=== PATIENT | male | born 1950 | race Caucasian/White ===

== ENCOUNTER 2016-09-27 17:19 | Emergency (ER) | payer OTHER, MEDICARE ==
[2016-09-27] MEDS ORDERED: TERAZOSIN HCL10 M1 PO (17:48)
[2016-09-27] MEDS ORDERED: VERAPAMIL ER240 M1 PO (17:48)
[2016-09-27] MEDS ORDERED: GLUCOVANCE 2.51 EACH PO ×2 (17:49)
[2016-09-27] MEDS ORDERED: ASPIRIN EC81 M1 PO (17:49)
[2016-09-27] MEDS ORDERED: DAILY MULTIPLE1 EACH PO (17:50)
[2016-09-27] MEDS ORDERED: VITAMIN D2000 UNIT PO (17:50)
[2016-09-27] MEDS ORDERED: ALLEGRA ALLERG180 M1 PO (17:50)
[2016-09-27] MEDS ORDERED: EPINEPHRIN0.3 MG/0.1 IM (17:51)
--- NOTE | 2016-09-27 18:10 | ED SKIN/ALLERGY COMPLAINT ---
See Addendum History of Present Illness General Chief Complaint: Allergy Symptoms Stated Complaint: TOUNGE SWOLLEN, NO RESP DISTRESS NOTED Source: patient Exam Limitations: no limitations Vital Signs & Intake/Output Vital Signs & Intake/Output Vital Signs Date Time Temp Pulse Resp B/P Pulse O2 O2 Flow FiO2 Ox Delivery Rate 09/27 2206 70 18 155/84 96 09/27 1928 98.2 86 20 169/85 96 09/27 1816 97.0 84 18 172/90 97 Room Air 09/27 1810 97 09/27 1733 97.3 87 16 180/90 98 Room Air Allergies Coded Allergies: mold (09/27/16) pollen extracts (09/27/16) Uncoded Allergies: CATS (09/27/16) Triage Note: TRIAGE; PT TO ED WITH TONGUE SWELLING X1.5 HOURS AND TOOK AN LEONID. STATES HAS HAD EPISODES OF SWELLING TO OTHER PARTS OF HIS BODY IN THE PAST. HAS EPI PEN BUT DID NOT USE IT. DENIES ANY DIFF BREATHING. TA SAT 98%. Triage Nurses Notes Reviewed? yes Onset: Gradual Duration: getting worse Timing: single episode today Severity: moderate Severity Numbers: 5 Location: face Possible Factors: foods HPI: Patient is a 66-year-old male with a past medical history of hypertension and diabetes, prostate cancer WITH prostatectomy who presented to emergency room stating that 2 hours prior to arrival patient was in his normal state of health who states that he was eating sweet potato chips and drinking a vodka with Delta where half an hour later he started developing gradually worsening tongue swelling. Patient took an Leonid prior to arrival with no relief of symptoms. Patient denies any fever chills difficulty swallowing difficulty breathing rash. Patient does state that he has difficulty talking patient is able tolerate his own secretions Patient does admit to having multiple allergies in which he has been evaluated by an lang interpreter and was given epinephrine pen if needed however he did not take this prior to arrival. Patient describes no new medications prior to symptoms onset Is not on an RUCHI inhibitor (SANGITA SHULTZ) Reconcile Medications Aspirin (Ecotrin*) 81 MG TABLET. 1 TAB PO EOD HEART/BLOOD (Reported) Cholecalciferol (Vitamin D3) (Vitamin D) (Unknown Strength) CAPSULE (Unknown Dose) PO DAILY SUPPLEMENT (Reported) Diphenhydramine HCl (Benadryl) 25 MG CAPSULE 1 CAP PO TID ALLERGIC REACTION Epinephrine 0.3 MG/0.3 ML AUTO.INJCT 0.3 MG IM AD PRN ALLERGIC REACTION ( Reported) Famotidine (Pepcid) 20 MG TABLET 1 TAB PO BID ALLERGIC REACTION Fexofenadine HCl (Leonid Allergy) 180 MG TABLET 1 TAB PO DAILY ALLERGIES ( Reported) Glyburide/Metformin HCl (Glucovance 2.5-500 MG Tablet) 2.5 MG-500 MG TABLET 1 TAB PO QAM DM (Reported) Glyburide/Metformin HCl (Glucovance 2.5-500 MG Tablet) 2.5 MG-500 MG TABLET 2 TAB PO QPM DM (Reported) Multivitamin (Daily Multiple Vitamin) 1 EACH TABLET 1 TAB PO DAILY SUPPLEMENT (Reported) Prednisone 10 MG TABLET 1 TAB PO AD ANGIOEDEMA DAY1/DAY2 FOUR TABS DAY3/DAY4 THREE TABS DAY 5 TWO TABS Terazosin HCl 10 MG CAPSULE 1 CAP PO DAILY BP (Reported) Verapamil HCl (Verapamil ER) 240 MG TABLET.ER 1 TAB PO BID BP (Reported) (CALIN HUANG) Past History Travel History Traveled to [place] past 21 day No Medical History Any Pertinent Medical History? see below for history Cardiovascular: hypertension Endocrine: diabetes Cancer(s): prostate cancer Surgical History Surgical History: non-contributory Family History Hx Contributory? No (SANGITA SHULTZ) Review of Systems Review of Systems Constitutional: Reports: no symptoms. EENTM: Denies: throat pain, throat swelling. Respiratory: Reports: no symptoms. Cardiovascular: Reports: no symptoms. GI: Reports: no symptoms. Genitourinary: Reports: no symptoms. Musculoskeletal: Reports: no symptoms. Skin: Reports: no symptoms. Neurological/Psychological: Reports: no symptoms. Hematologic/Endocrine: Reports: no symptoms. Immunologic/Allergic: Reports: no symptoms. All Other Systems: Reviewed and Negative (SANGITA SHULTZ) Physical Exam Physical Exam General Appearance: no apparent distress, alert Comments: Well-developed well-nourished person in no acute distress HEENT: Normal EENT exam, extraocular motion intact, no nystagmus. Pupils equally round and reactive to light and accommodation. Nose is atraumatic. External auditory canal and Tympanic membranes clear. Pharynx normal. No swelling or edema. No lip swelling, Moderate tongue swelling noted Neck: Supple, no lymphadenopathy, normal range of motion without pain or tenderness No stridor Cardiovascular: Regular rate and rhythms no murmurs rubs or gallops, normal JVP Respiratory: Chest nontender. No respiratory distress.breath sounds clear to auscultation bilaterally Abdomen: Soft, nontender nondistended, no appreciable organomegaly. Normal bowel sounds. No ascites Extremity: No edema, no calf tenderness to palpation, normal and equal pulses. Neuro: Alert oriented x3, motor sensory normal, Skin: No appreciable rash on exposed skin, skin is warm and dry. Psych: Mood and affect is normal, memory and judgment is normal. (SANGITA SHULTZ) Progress Differential Diagnosis: abscess/cellulitis, allergic reaction, anaphylaxis, angioedema, asthma, contact dermatitis, drug reaction Plan of Care: Current Medications Sig/Carmen Start time Last Medication Dose Stop Time Status Admin Diphenhydramine HCl 50 MG ONCE ONE 09/27 1814 UNVr (Benadryl) 09/28 1815 Famotidine 20 MG ONCE ONE 09/27 1814 UNVr (Pepcid) 09/28 1815 Methylprednisolone 125 MG ONCE ONE 09/27 1814 UNVr (Solu Medrol) 09/28 181509/27/2016 6:52:03 PM reevaluation the patient patient had no change in symptoms however he still has no stridor no pharyngeal swelling no tongue swelling and no respiratory distress oxygen saturation 98% room air 09/27/2016 8:36:28 PM patient was reevaluated on multiple occasions and noted improvement of symptoms HOWEVER there is still mild swelling noted. Patient will be continued to be monitored and evaluated by hand off provider. The posterior pharynx on examination was unremarkable. Patient still had no stridor. Patient resting comfortably. Oxygen saturation 98%. Discussed hand off with Calin Head PA-C who is aware of disposition and plan (SANGITA SHULTZ) Hand-Off Endorsed To: CALIN HUANG Endorsed Time: 2041 Pending: other (SANGITA SHULTZ) Comments: 09/27/2016 8:34:00 PM patient signed out to me at change of shift. Patient was medicated for likely allergic reaction and swelling of the tongue. We will continue to monitor this patient to make sure there is no delayed reaction or worsening of symptoms. Vitals will be monitored closely. 09/27/2016 10:34:37 PM patient was reevaluated. Claims secretions without difficulty. Tongue swelling seems to be improving. Patient reports that his tongue feels much improved after medications. Patient will be discharged home and will start medications ever given to him tomorrow. He will return for any worsening symptoms or concerns. Discussed with Dr. moore and he agrees with plan. (CALIN HUANG) Departure Departure Disposition: HOME OR SELF CARE Condition: Stable Clinical Impression Primary Impression: Angioedema Referrals: CHRISTINA CABAN,LINNEA Dobbins (PCP/Family) Additional Instructions: As discussed first thing tomorrow follow-up with YOUR lang interpreter as directed for further evaluation treatment. Please avoid the ingestion of food prior to onset of your symptoms as this may worsen your symptoms. Begin the prescription of prednisone, AND BENADRYL, and Pepcid as directed tomorrow as you receive this medication emergency room today. If symptoms worsen return to the emergency room. Per sepsis awaiting your pharmacy. Departure Forms: Customer Survey General Discharge Information Prescriptions: Current Visit Scripts Prednisone 1 TAB PO AD #16 TAB DAY1/DAY2 FOUR TABS DAY3/DAY4 THREE TABS DAY 5 TWO TABS Diphenhydramine HCl (Benadryl) 1 CAP PO TID #12 CAP Famotidine (Pepcid) 1 TAB PO BID #8 TAB (SANGITA SHULTZ) PA/MILL PLATFORM SUPERVISOR Co-Sign Statement Statement: ED Attending supervision documentation- x I saw and evaluated the patient. I have also reviewed all the pertinent lab results and diagnostic results. I agree with the findings and the plan of care as documented in the PA's/MILL PLATFORM SUPERVISOR's documentation. [] I have reviewed the ED Record and agree with the PA's/MILL PLATFORM SUPERVISOR's documentation. [] Additions or exceptions (if any) to the PAs/MILL PLATFORM SUPERVISOR's note and plan are summarized below: [] (MINA CABAN,SALMA)
[2016-09-27] MEDS ORDERED: PREDNISONE10 M2 PO (20:43)
[2016-09-27] MEDS ORDERED: BENADRYL25 MG PO (20:43)
[2016-09-27] MEDS ORDERED: PEPCID20 M1 PO (20:43)
[2016-09-27 22:06] VITALS: BP 155/84
== END 2016-09-27 22:37 ==
LOC: ERH 17:19
DX: T78.3XXA Angioneurotic edema, initial encounter (principal)
CPT/HCPCS: 96374; 96375; J1200; J2930

== ENCOUNTER 2016-10-05 17:09 | Emergency (ER) | payer OTHER, MEDICARE ==
[~2016-10-05 17:09] MED LIST: ALLEGRA ALLERG180 M1 PO; ASPIRIN EC81 M1 PO; BENADRYL25 MG PO; DAILY MULTIPLE1 EACH PO; EPINEPHRIN0.3 MG/0.1 IM; GLUCOVANCE 2.51 EACH PO; PEPCID20 M1 PO; PREDNISONE10 M2 PO; TERAZOSIN HCL10 M1 PO; VERAPAMIL ER240 M1 PO; VITAMIN D2000 UNIT PO
--- NOTE | 2016-10-05 17:38 | ED SKIN/ALLERGY COMPLAINT ---
See Addendum History of Present Illness General Chief Complaint: General Adult Stated Complaint: THROAT SWELLING Source: patient, old records Exam Limitations: no limitations Vital Signs & Intake/Output Vital Signs & Intake/Output Vital Signs Date Time Temp Pulse Resp B/P Pulse O2 O2 Flow FiO2 Ox Delivery Rate 10/06 2151 97.5 75 18 156/84 94 Room Air 10/05 1942 98.7 65 18 148/80 98 Room Air 10/05 1853 97.6 63 18 152/80 97 Room Air 10/05 1738 98 10/05 1719 98.6 74 16 174/100 99 Room Air Allergies Coded Allergies: atorvastatin (From LIPITOR) (Intermediate, JOINT SWELLING, UNABLE TO WALK ) quinapril (From ACCUPRIL) (Intermediate, SWELLING, ANGIOEDEMA 10/05/16) cat dander (THROAT SWELLING 10/05/16) mold (POSITIVE ALLERGY TEST 10/05/16) pollen extracts (POSITIVE ALLERGY TEST 10/05/16) Reconcile Medications Aspirin (Ecotrin*) 81 MG TABLET.DR 1 TAB PO EOD HEART/BLOOD (Reported) Cetirizine HCl (Zyrtec) 10 MG TABLET 1 TAB PO PRN ALLERGIES (Reported) Cholecalciferol (Vitamin D3) (Vitamin D) (Unknown Strength) CAPSULE (Unknown Dose) PO DAILY SUPPLEMENT (Reported) Epinephrine 0.3 MG/0.3 ML AUTO.INJCT 0.3 MG IM AD PRN ALLERGIC REACTION ( Reported) Glyburide/Metformin HCl (Glucovance 2.5-500 MG Tablet) 2.5 MG-500 MG TABLET 1 TAB PO QAM DM (Reported) Glyburide/Metformin HCl (Glucovance 2.5-500 MG Tablet) 2.5 MG-500 MG TABLET 2 TAB PO QPM DM (Reported) Multivitamin (Daily Multiple Vitamin) 1 EACH TABLET 1 TAB PO DAILY SUPPLEMENT (Reported) Prednisone 10 MG TABLET 1 TAB PO AD INFLAMMATION DAY1/DAY2 FOUR TABS DAY3/DAY4 THREE TABS DAY5/DAY6 TWO TABS DAY 7 ONE TAB Terazosin HCl 10 MG CAPSULE 1 CAP PO DAILY BP (Reported) Verapamil HCl (Verapamil ER) 240 MG TABLET.ER 1 TAB PO BID BP (Reported) Triage Note: PT TO ED WITH THROAT SWELLING AND APPEARING LEFT SIDED ANGIOEDEMA SWELLING. ALSO REPORTS SWELLING TO CHIN AND PAIN TO LEFT NECK AREA. TREATED HERE 09/27 FOR SAME AND INSTRUCTED TO FOLLOW UP WITH PROPAGATION MANAGER HAS APPT TOMORROW. SWELLING AND WHISPERING TO SPEAK, STARTED APPROX 2 HOURS AGO. NO RESPIRATORY DISTRESS O2 SAT 99%RA. 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 DENIES FEVER/CHILLS, DENIES N/V Triage Nurses Notes Reviewed? yes Onset: Gradual Duration: constant Timing: single episode today Severity: moderate Severity Numbers: 5 HPI: Patient is a 66-year-old male with a past echo history of type 2 diabetes and hypertension and multiple allergies and allergic reaction and angioedema in the past who presents to emergency room with a gradual onset after 3 hours of eating macaroni and posterior with Parmesan cheese and iced tea of left sided neck swelling throat swelling and tongue swelling. Patient takes Zyrtec prior to arrival patient states that he's had multiple absolute this in the past however he denies any clear etiology of symptoms or irritant exposure Patient does complain of sore throat pain however denies any difficulty breathing or difficulty swallowing or trismus or submandibular swelling or fever chills. Patient was evaluated 8 days ago by me in the emergency room for similar events of angioedema only to the tongue where he responded with antihistamines and anti -inflammatories of steroids. Patient did go on a regimen after his discharge and states that the symptoms completely resolved patient tried to follow-up with an party plan sales unit advisor this week however due to snow it was canceled in which his party plan sales unit advisor appointment is on Saturday. Denies any new medications denies any skin itching sensation or urticaria denies any facial swelling or lip swelling (SANGITA SHULTZ) Past History Travel History Traveled to [place] past 21 day No Medical History Any Pertinent Medical History? see below for history Cardiovascular: hypertension Endocrine: diabetes Cancer(s): prostate cancer Surgical History Surgical History: non-contributory Psychosocial History What is your primary language Syriac Family History Hx Contributory? No (SANGITA SHULTZ) Review of Systems Review of Systems Constitutional: Reports: no symptoms. EENTM: Reports: see HPI, throat pain, throat swelling. Respiratory: Reports: no symptoms. Cardiovascular: Reports: no symptoms. GI: Reports: no symptoms. Genitourinary: Reports: no symptoms. Musculoskeletal: Reports: no symptoms. Skin: Reports: no symptoms. Neurological/Psychological: Reports: no symptoms. Hematologic/Endocrine: Reports: no symptoms. Immunologic/Allergic: Reports: no symptoms. All Other Systems: Reviewed and Negative (SANGITA SHULTZ) Physical Exam Physical Exam General Appearance: no apparent distress, alert, comfortable Comments: Well-developed well-nourished person in no acute distress HEENT: extraocular motion intact, no nystagmus. Pupils equally round and reactive to light and accommodation. Nose is atraumatic. External auditory canal and Tympanic membranes clear. Pharynx -noted left-sided swelling No trismus no submandibular swelling Note lip swelling however moderate tongue swelling noted Neck: Supple, no lymphadenopathy, normal range of motion without pain or tenderness No stridor Back: Nontender, no CVA tenderness. Cardiovascular: Regular rate and rhythms no murmurs rubs or gallops, normal JVP Respiratory: Chest nontender. No respiratory distress.breath sounds clear to auscultation bilaterally Abdomen: Soft, nontender nondistended, no appreciable organomegaly. Normal bowel sounds. No ascites Extremity: No edema, no calf tenderness to palpation, normal and equal pulses. Neuro: Alert oriented x3, motor sensory normal, Skin: No appreciable rash on exposed skin, skin is warm and dry. Psych: Mood and affect is normal, memory and judgment is normal. (SANGITA SHULTZ) Progress Differential Diagnosis: abscess/cellulitis, allergic reaction, anaphylaxis, angioedema, contact dermatitis, drug reaction, erythema multiforme, lyme disease , meningitis/sepsis, piyriasis rosea, scarlet fever, shingles, syphilis/ gonococcemia, urticaria Plan of Care: Orders Procedure Date/time Status THROAT CULTURE W/QUICK STREP 10/06 1739 Active Patient currently is in no apparent distress and has a significant history of allergic reactions and angioedema. Oxygen saturation 100% no stridor no respiratory distress at this time 10/05/2016 7:32:50 PM reevaluation the patient, patient is resting comfortably no apparent distress no respiratory distress on physical exam findings there is been no change in swelling. Strep was negative. Patient will be evaluated longer in the ER No stridor Oxygen saturation 98% room air 10/05/2016 10:02:21 PM patient on reevaluation had significant improvement of his angioedema from his tongue and posterior pharynx. Patient was able tolerate by mouth oxygen saturation 99% room air patient felt comfortable for management at home no stridor was noted no respiratory distress Patient has follow-up appointment tomorrow with party plan sales unit advisor patient was stressed the importance of close monitoring and he will comply (SANGITA SHULTZ) Departure Departure Disposition: HOME OR SELF CARE Condition: Stable Clinical Impression Primary Impression: Angioedema Referrals: CHRISTINA CABAN,LINNEA Dobbins (PCP/Family) Additional Instructions: As discussed begin the prescription of prednisone tomorrow as YOU HAVE received prednisone in the emergency room today. Begin [id number] Benadryl and Zyrtec as directed for your symptoms. Please avoid the food eaten prior to arrival for this may worsen YOUR symptoms. Follow-up with your party plan sales unit advisor appointment tomorrow. If symptoms worsen return to emergency room. Departure Forms: Customer Survey General Discharge Information Prescriptions: Current Visit Scripts Prednisone 1 TAB PO AD #19 TAB DAY1/DAY2 FOUR TABS DAY3/DAY4 THREE TABS DAY5/DAY6 TWO TABS DAY 7 ONE TAB (SANGITA SHULTZ) PA/LEG ASSEMBLER Co-Sign Statement Statement: ED Attending supervision documentation- [] I saw and evaluated the patient. I have also reviewed all the pertinent lab results and diagnostic results. I agree with the findings and the plan of care as documented in the PA's/LEG ASSEMBLER's documentation. [X] I have reviewed the ED Record and agree with the PA's/LEG ASSEMBLER's documentation. [] Additions or exceptions (if any) to the PAs/LEG ASSEMBLER's note and plan are summarized below: [] (DAISY CABAN,ROYA)
[2016-10-05] MEDS ORDERED: BENADRYL25 MG PO (17:49)
[2016-10-05] MEDS ORDERED: ZYRTEC10 M3 PO (17:50)
[2016-10-05 21:52] VITALS: BP 156/84
[2016-10-05] MEDS ORDERED: PREDNISONE10 M2 PO (21:54)
== END 2016-10-05 22:01 ==
LOC: ERH 17:09
DX: T78.3XXA Angioneurotic edema, initial encounter (principal)
CPT/HCPCS: 96374; 96375; J1200; J2930